=== PATIENT | female | born 1975 | race Caucasian/White ===

== ENCOUNTER → 2022-04-24 08:09 | Outpatient (CLI) | payer OTHER, SELFPAY ==
[2022-04-24 10:47] LABS: Add Manual Diff / Slide Review NO; Basophils Absolute Auto 0 /uL (0-100); Basophils Percent Auto 0.7 % (0-2); Eosinophils Absolute Auto 100 /uL (0-450); Eosinophils Percent Auto 2.4 % (2-4); Hematocrit 40.6 % (36-46); Hemoglobin 13.9 g/dL (12.0-16.0); Lymphocytes Absolute Auto 1800 /uL (1100-4500); Lymphocytes Percent Auto 34.2 % (25-40); Mean Corpuscular HGB Conc 34.1 % (30-36); Mean Corpuscular Hemoglobin 30.8 PG (26-34); Mean Corpuscular Volume 90.1 fL (80-100); Monocytes Absolute Auto 300 /uL (0-900); Neutrophils Absolute Auto 2900 /uL (1500-7000); Neutrophils Percent Auto 56.7 % (50-75); Platelet Count 218 X10^3/uL (150-400); Red Blood Cell Count 4.51 X10^6/uL (4.0-5.2); Red Cell Distribution Width 12.4 % (11.6-14.8); White Blood Cell Count 5.1 X10^3/uL (4.5-11.0)
[2022-04-24 11:06] LABS: Erythrocyte Sedimentation Rate 9 MM/HR (0-20)
[2022-04-24 11:13] LABS: Hemoglobin A1C% w Est Avg Glu 5.3 % (4.0-6.0)
[2022-04-24 11:18] LABS: Alanine Aminotransferase 10 IU/L (<35); Albumin Globulin Ratio 1.5 (1.0-2.8); Alkaline Phosphatase 53 U/L (38-126); Aspartate Aminotransferase 18 IU/L (14-36); BUN Creatinine Ratio 15.3 (6-22); Bilirubin Total 0.5 mg/dL (0.2-1.3); Blood Urea Nitrogen 11 mg/dL (7-17); Carbon Dioxide 28 mmol/L (22-32); Chloride 104 mmol/L (98-107); Cholesterol 179 mg/dL (140-199); Estimated Glomerular Filt Rate > 60 mL/min (>60); Globulin 2.7 g/dL (1.7-4.1); Glucose 86 mg/dL (70-100); HDL Cholesterol 38 mg/dL (40-60); HEMOLYSIS < 15 (0-50); LDL Cholesterol Calculated 117 mg/dL (<100); Potassium 4.2 mmol/L (3.4-5.1); Sodium 138 mmol/L (137-145); Total Protein 6.7 g/dL (6.3-8.2); Triglycerides 119 mg/dL (35-150)
[2022-04-24 11:23] LABS: High Sensitivity CRP - Cardiac 0.8 mg/L (1.0-3.0)
[2022-04-24 11:31] LABS: Progesterone, Total 2.97 ng/mL
[2022-04-24 11:47] LABS: Estradiol, Total 27.9 pg/mL
[2022-04-24 11:51] LABS: TSH w/ Reflex to FT4 1.48 uIU/mL (0.47-4.68)
[2022-04-25 07:37] LABS: Insulin Level Total 17.3 uIU/mL (2.6-24.9)
[2022-04-26 13:36] LABS: ANA Screen, IFA Negative (.)
[2022-05-01 22:06] LABS: Testosterone % Fr + Wkly bound 9.2 % (3.0-18.0); Testosterone Fr+Wkly bound 1.6 ng/dL (0.0-9.5); Testosterone, Total 17.9 ng/dL (.)
[2022-05-09 12:03] LABS: Dehydroepiandrosterone (DHEA) 503
== END ==
PROVIDERS: PCP Family Medicine; Referring Provider Family Medicine; Visit Provider Family Medicine
DX: E28.2 Polycystic ovarian syndrome (principal); E88.81 Metabolic syndrome and other insulin resistance; E66.9 Obesity, unspecified; R53.83 Other fatigue; Z86.32 Personal history of gestational diabetes; R79.9 Abnormal finding of blood chemistry, unspecified; R20.0 Anesthesia of skin; R20.2 Paresthesia of skin; Z13.220 Encounter for screening for lipoid disorders; Z83.2 Family history of diseases of the blood and blood-forming organs and certain disorders involving the immune mechanism
CPT/HCPCS: 36415; 80053; 80061; 82627; 82670; 83036; 83525; 84144; 84403; 84443; 85025; 85651; 86038; 86140

== ENCOUNTER → 2022-11-06 13:18 | Outpatient (CLI) | payer OTHER, SELFPAY ==
--- NOTE | 2022-11-06 | DI.MG.S_ITS ---
BILATERAL DIGITAL SCREENING MAMMOGRAM 3D/2D WITH CAD: 11/06/2022 CLINICAL: Routine screening. Baseline exam. No prior exams were available for comparison. Both breasts are heterogeneously dense, which may obscure small masses (category c / 51-75% glandular tissue). Current study was also evaluated with a Computer Aided Detection (CAD) system. There is a 0.9 cm x 1.5 cm focal asymmetry in the left breast at 5 o'clock middle depth. No other significant masses, calcifications, or other findings are seen in either breast. IMPRESSION: INCOMPLETE: NEEDS ADDITIONAL IMAGING EVALUATION The 0.9 cm x 1.5 cm focal asymmetry in the left breast is indeterminate. Additional views with possible ultrasound are recommended. Based on the Tyrer Cuzick model (a risk assessment model) the patient's lifetime risk is 12.7% and her 10 year risk is 2.6%. According to the ACR, ACS, and NCCN guidelines, an annual breast MRI exam along with mammogram is recommended if the patient's lifetime risk is 20% or greater. This exam was interpreted at Station ID: [id number]. NOTE: For mammograms, a report in lay terms will be sent to the patient. Approximately 15% of breast malignancies will not be visualized mammographically. In the management of a palpable breast mass, a negative mammogram must not discourage biopsy of a clinically suspicious lesion. Electronically Signed By: Akbar landaverde/faiza:11/06/2022 14:25:37 letter sent: Additional Imaging Needed ACR BI-RADS Category 0: Incomplete 3340F
== END ==
PROVIDERS: PCP Family Medicine; Referring Provider Family Medicine; Visit Provider Family Medicine
DX: Z12.31 Encounter for screening mammogram for malignant neoplasm of breast (principal)
CPT/HCPCS: 77063; 77067

== ENCOUNTER → 2022-12-18 09:25 | Outpatient (CLI) | payer OTHER, SELFPAY ==
--- NOTE | 2022-12-18 | DI.US.S_ITS ---
LIMITED ULTRASOUND OF LEFT BREAST AND AXILLA: 12/18/2022 CLINICAL: Patient returns today to evaluate an asymmetry in the left breast. Patient returns today to evaluate a focal asymmetry in the left breast. Comparison is made to exams dated: 12/18/2022 mammogram and 11/06/2022 mammogram - [facility]. Color flow and real-time ultrasound of the left breast 5-6 o'clock, and axilla regions were performed. Dukes scale images of the real-time examination were reviewed. There is a 0.9 cm x 0.7 cm x 0.5 cm oval mass in the left breast at 5 o'clock middle depth 7 cm from the nipple. This oval mass is hypoechoic with posterior acoustic shadowing. This correlates with mammography findings. There are related micro calcifications. Color flow imaging demonstrates that there is no vascularity present. No significant abnormalities were seen sonographically in the left axilla. IMPRESSION: SUSPICIOUS OF MALIGNANCY The 0.9 cm x 0.7 cm x 0.5 cm oval mass in the left breast is at a low suspicion for malignancy. Differential diagnosis of a fibroadenoma. An ultrasound guided biopsy is recommended. No enlarged left axillary lymph nodes. Exam findings were discussed with the patient by Dr. Romero Spicer. This exam was interpreted at Station ID: [id number]. Electronically Signed By: Henrik Billings M.D. [facility]/:12/18/2022 10:24:12 letter sent: Biopsy Required Ultrasound BI-RADS: 4a Low suspicion for malignancy
--- NOTE | 2022-12-18 | DI.MG.S_ITS ---
UNILATERAL LEFT DIGITAL DIAGNOSTIC MAMMOGRAM 3D/2D WITH ADDITIONAL VIEWS: 12/18/2022 CLINICAL: Additional evaluation requested from prior study. Comparison is made to exam dated: 11/06/2022 mammogram - [facility]. The left breast is heterogeneously dense, which may obscure small masses (category c / 51-75% glandular tissue). There is a 1.5 cm oval focal asymmetry with a circumscribed margin in the left breast at 5 o'clock middle depth. No other significant masses or calcifications are seen in the breast. IMPRESSION: INCOMPLETE: NEEDS ADDITIONAL IMAGING EVALUATION The 1.5 cm oval focal asymmetry in the left breast is indeterminate. A targeted ultrasound is recommended and will immediately follow. Based on the Tyrer Cuzick model (a risk assessment model) the patient's lifetime risk is 12.7% and her 10 year risk is 2.6%. According to the ACR, ACS, and NCCN guidelines, an annual breast MRI exam along with mammogram is recommended if the patient's lifetime risk is 20% or greater. This exam was interpreted at Station ID: [id number]. NOTE: For mammograms, a report in lay terms will be sent to the patient. Approximately 15% of breast malignancies will not be visualized mammographically. In the management of a palpable breast mass, a negative mammogram must not discourage biopsy of a clinically suspicious lesion. Electronically Signed By: Henrik Billings M.D. slc/:12/18/2022 09:52:00 ACR BI-RADS Category 0: Incomplete 3340F
== END ==
PROVIDERS: PCP Family Medicine; Referring Provider Family Medicine; Visit Provider Family Medicine
DX: R92.8 Other abnormal and inconclusive findings on diagnostic imaging of breast (principal); N63.23 Unspecified lump in the left breast, lower outer quadrant
CPT/HCPCS: 76642; 77065; G0279

== ENCOUNTER → 2023-01-06 07:45 | Outpatient (CLI) | payer OTHER, SELFPAY ==
--- NOTE | 2023-01-06 | DI.MG.S_ITS ---
UNILATERAL LEFT DIGITAL DIAGNOSTIC MAMMOGRAM 3D/2D POST-EXCISIONAL BIOPSY: 01/06/2023 CLINICAL: Post clip. Comparison is made to exams dated: 12/18/2022 mammogram, 11/06/2022 mammogram, 12/18/2022 ultrasound, and 01/06/2023 ultrasound biopsy - [facility]. The left breast is heterogeneously dense, which may obscure small masses (category c / 51-75% glandular tissue). There is a vision marker clip in the appropriate position in the left breast at 6 o'clock anterior depth at the biopsy site. However, the biopsied mass and the original mammographic finding are discordant. IMPRESSION: POST PROCEDURE MAMMOGRAM FOR MARKER PLACEMENT There was a successful vision marker clip placement in the left breast anterior depth at the biopsy site. However, the biopsied mass and the original mammographic finding are discordant. Please see separately dictated US biopsy report. This discordance was discussed with the patient after the biopsy. This exam was interpreted at Station ID: [id number]. Electronically Signed By: Henrik Billings M.D. slc/:01/06/2023 09:27:09 ACR BI-RADS Category Post-procedure mammogram for marker placement
--- NOTE | 2023-01-06 | PATH_ITS ---
[facility] Accession Number: [id number] No. of containers..01 Tissue . 01 Material submitted: . breast - LEFT BREAST MASS 5:30 7 CMFN . 01 Diagnosis: A. Left Breast Mass, 5:30, 7 cm from the Nipple, Biopsy: Fragments of fibroadenoma. No evidence of atypia, carcinoma in situ, or malignancy. MRV 01/08/2023 1820 Local . 01 Electronically signed: . Charity Hickman MD, Pathologist NPI- [id number] . 01 Gross description: . Received one formalin-filled container, labeled with the patient's name and designated left breast mass 5:30, 7 cm FN. The specimen is received with a plastic filter in container, sample loose in container and consists of multiple fragments of yellow-nj soft tissue which range in size from 0.1 x 0.1 x 0.1 cm to 1.0 x 0.2 x 0.2 cm. All fragments are totally submitted in one cassette. Possible collection date and time per requisition: 01/06/2023 at 0907. Total fixation time: Approximately 18 hours. ([id number]) /FRNicol 01/07/2023 0218 Local . 01 Pathologist provided ICD-10: D24.2 . 01 CPT . 932066 Specimen Comment: A courtesy copy of this report has been sent to [facility] Pathology Performed at: 01 [facility] [address] [place] [address] [id number] MD Robert Prasad MD Phone: [phone]
--- NOTE | 2023-01-06 | DI.US.S_ITS ---
ULTRASOUND GUIDED BIOPSY LEFT BREAST USING VACUUM DEVICE WITH MARKING DEVICE INSERTED AND POST DIGITAL MAMMOGRAPHIC AND ULTRASOUND IMAGIN01/06/2023 CLINICAL: Left breast mass. PATIENT CONSENT: Risks (minor bleeding, infection, vasovagal reaction and repeat procedure), benefits and alternatives were explained to the patient and written informed consent was obtained. Correlation is made to exams dated: 01/06/2023 mammogram, 12/18/2022 ultrasound, 12/18/2022 mammogram, and 11/06/2022 mammogram - [facility]. An ultrasound guided biopsy using real-time ultrasound was performed for the 0.7 cm circumscribed oval mass located in the left breast at 5:30 o'clock middle depth 7 cm from the nipple. This was described on the previous ultrasound report. The skin was prepped in the usual manner. Local anesthetic was administered to the access site. A skin anais was made in the breast. The abnormality was approached from the lateral aspect. A 13 gauge biopsy needle was placed adjacent to the abnormality under ultrasound guidance. Once the needle was documented to be in the correct location, six specimens were obtained using the Mammotome biopsy system. The patient received additional local anesthetic during the procedure. A vision clip was inserted into the biopsy cavity. A skin adhesive and a sterile dressing were applied to the access site. Post procedure digital mammographic and ultrasound imaging demonstrates the location device at the targeted area. The specimens were sent to the laboratory for pathological analysis. IMPRESSION: ULTRASOUND GUIDED BIOPSY BENIGN Ultrasound guided biopsy of the 0.7 cm mass in the left breast at 5:30 o'clock middle depth 7 cm from the nipple was successful. Pathology demonstrate a fibroadenoma. Pathology results are concordant with imaging findings. The post biopsy mammogram clip location and the original mammographic mass are not the same mass. However, the original mammographic mass is small and circumscribed and is most consistent with an additional fibroadenoma. There is a small circumscribed mass in the right breast 12:00 anterior depth seen on the tomosynthesis images which also is most consistent with a fibroadenoma. Multiple bilateral circumscribed masses, one of which is a biopsy proven benign fibroadenoma. A follow-up mammogram in 6 months is recommended to demonstrate stability as a precaution. This exam was interpreted at Station ID: [id number]. Henrik Billings M.D. slc/:01/09/2023 15:07:25
== END ==
PROVIDERS: PCP Nurse Practitioner Family; Referring Provider Nurse Practitioner Family; Visit Provider Nurse Practitioner Family
DX: D24.2 Benign neoplasm of left breast (principal)
CPT/HCPCS: 19083; 77065

== ENCOUNTER → 2023-05-21 12:04 | Outpatient (CLI) | payer OTHER, SELFPAY ==
[2023-05-21 13:22] LABS: Hemoglobin A1C% w Est Avg Glu 4.9 % (4.0-6.0)
[2023-05-21 13:23] LABS: Alanine Aminotransferase 19 IU/L (<35); Albumin 4.4 g/dL (3.5-5.0); Albumin Globulin Ratio 1.5 (1.0-2.8); Alkaline Phosphatase 52 U/L (38-126); Aspartate Aminotransferase 26 IU/L (14-36); BUN Creatinine Ratio 14.7 (6-22); Bilirubin Total 0.6 mg/dL (0.2-1.3); Blood Urea Nitrogen 10 mg/dL (7-17); Calcium 9.5 mg/dL (8.4-10.2); Carbon Dioxide 20 mmol/L (22-32); Chloride 105 mmol/L (98-107); Estimated Glomerular Filt Rate > 60 mL/min (>60); Glucose 91 mg/dL (70-100); Sodium 135 mmol/L (137-145); Total Protein 7.4 g/dL (6.3-8.2)
[2023-05-21 13:31] LABS: HEMOLYSIS 69 (0-50)
[2023-05-21 13:32] LABS: Potassium 4.6 mmol/L (3.4-5.1)
[2023-05-21 13:54] LABS: TSH w/ Reflex to FT4 1.11 uIU/mL (0.47-4.68)
[2023-05-23 05:28] LABS: Cholesterol,Total 220 mg/dL (100-199); HDL Cholesterol 44 mg/dL (>39); LDL Cholesterol Cal 157 mg/dL (0-99); Triglycerides 107 mg/dL (0-149); VLDL Cholesterol Cal 19 mg/dL (5-40)
== END ==
PROVIDERS: PCP Nurse Practitioner Family; Referring Provider Nurse Practitioner Family; Visit Provider Nurse Practitioner Family
DX: R73.9 Hyperglycemia, unspecified (principal); E66.9 Obesity, unspecified; Z13.220 Encounter for screening for lipoid disorders
CPT/HCPCS: 36415; 80053; 80061; 83036; 84443

== ENCOUNTER → 2023-07-29 12:04 | Outpatient (CLI) | payer OTHER, SELFPAY ==
--- NOTE | 2023-07-29 | DI.MG.S_ITS ---
UNILATERAL LEFT DIGITAL DIAGNOSTIC MAMMOGRAM 3D/2D SHORT-TERM FOLLOW-UP: 07/29/2023 CLINICAL: Short term follow up for the left breast. Post clip. Comparison is made to exams dated: 01/06/2023 mammogram, 12/18/2022 mammogram, and 11/06/2022 mammogram - [facility]. The left breast is heterogeneously dense, which may obscure small masses (category c / 51-75% glandular tissue). The biopsy site marker is present at the 6:30 position middle depth right breast. No increasing associated asymmetry or other suspicious features. Incidentally, there is a 1 cm oval asymmetry with a circumscribed margin in the left breast at 4 o'clock middle depth. This is increased in size. No other significant masses or calcifications are seen in the breast. IMPRESSION: INCOMPLETE: NEEDS ADDITIONAL IMAGING EVALUATION Stable tissue surrounding a 6:30 biopsy marker which indicates biopsy-proven fibroadenoma. Incidental 1 cm increasing asymmetry in the left breast most likely is a fibroadenoma but remains indeterminate. An ultrasound is recommended. This will be performed as soon as possible. If not today, then at the next available appointment. Findings and recommendations were conveyed to the patient at time of exam. Based on the Tyrer Cuzick model (a risk assessment model) the patient's lifetime risk is 12.7% and her 10 year risk is 2.6%. According to the ACR, ACS, and NCCN guidelines, an annual breast MRI exam along with mammogram is recommended if the patient's lifetime risk is 20% or greater. This exam was interpreted at Station ID: [id number]. NOTE: For mammograms, a report in lay terms will be sent to the patient. Approximately 15% of breast malignancies will not be visualized mammographically. In the management of a palpable breast mass, a negative mammogram must not discourage biopsy of a clinically suspicious lesion. Electronically Signed By: Radha lynne/:07/29/2023 15:15:53 Entry: - 07/29/2023 15:15:53 ACR BI-RADS Category 0: Incomplete 3340F
== END ==
PROVIDERS: PCP Nurse Practitioner Family; Referring Provider Nurse Practitioner Family; Visit Provider Nurse Practitioner Family
DX: R92.8 Other abnormal and inconclusive findings on diagnostic imaging of breast (principal); D24.2 Benign neoplasm of left breast; N64.89 Other specified disorders of breast
CPT/HCPCS: 77065; G0279

== ENCOUNTER → 2023-07-30 14:45 | Outpatient (CLI) | payer OTHER, SELFPAY ==
--- NOTE | 2023-07-30 | DI.US.S_ITS ---
LIMITED ULTRASOUND OF LEFT BREAST: 07/30/2023 CLINICAL: Patient returns today to evaluate a focal asymmetry in the left breast. Comparison is made to exams dated: 07/29/2023 mammogram, 01/06/2023 ultrasound biopsy, 01/06/2023 mammogram, 12/18/2022 ultrasound, 12/18/2022 mammogram, and 11/06/2022 mammogram - [facility]. Color flow and real-time ultrasound of the left breast 4-6 o'clock region were performed. There is a 0.6 cm x 0.6 cm x 0.7 cm oval hypoechoic mass with a circumscribed margin in the left breast at 4 o'clock posterior depth 4 cm from the nipple. Color flow imaging demonstrates no vascularity present. This finding corresponds to lower outer quadrant mass seen on mammogram, which is mammographically stable since 11/06/2022. Previously biopsied benign and concordant mass at 5:30 o'clock, 7 cm from the nipple has decreased in size status post biopsy and now measures up to 0.8 cm, previously 0.9 cm. Biopsy clip is not definitely seen. IMPRESSION: PROBABLY BENIGN Left breast 0.6 cm oval circumscribed mass at 4 o'clock, which is mammographically stable since 11/06/2022. Finding likely represents a fibroadenoma and is probably benign. Recommend follow up left breast mammogram and ultrasound in 3 months (October 2023) when patient will be due for bilateral mammogram to demonstrate 1 year stability. Left breast 5:30 o'clock benign and concordant biopsied mass is stable. No further sonographic follow up is needed. Findings and recommendations were conveyed to the patient during today's evaluation. This exam was interpreted at Station ID: [id number]. Electronically Signed By: Amanda Sandoval M.D., PH.D eb/:07/30/2023 16:47:48 letter sent: Followup Recommended Ultrasound BI-RADS: 3 Probably benign
== END ==
PROVIDERS: PCP Nurse Practitioner Family; Referring Provider Nurse Practitioner Family; Visit Provider Nurse Practitioner Family
DX: R92.8 Other abnormal and inconclusive findings on diagnostic imaging of breast (principal); N63.23 Unspecified lump in the left breast, lower outer quadrant
CPT/HCPCS: 76642

== ENCOUNTER → 2023-11-18 13:33 | Outpatient (CLI) | payer OTHER, SELFPAY ==
--- NOTE | 2023-11-18 | DI.US.S_ITS ---
LIMITED ULTRASOUND OF LEFT BREAST AND AXILLA: 11/18/2023 CLINICAL: Patient returns today to evaluate a focal asymmetry in the left breast. Comparison is made to exams dated: 11/18/2023 mammogram, 07/30/2023 ultrasound, 07/29/2023 mammogram, 01/06/2023 ultrasound biopsy, 12/18/2022 ultrasound, and 11/06/2022 mammogram - [facility]. Color flow and real-time ultrasound of the left breast 3-4 o'clock, and axilla regions were performed. Dukes scale images of the real-time examination were reviewed. There is a 0.9 cm x 0.6 cm x 0.4 cm oval mass with a circumscribed margin in the left breast at 3 o'clock (closer to 3:00 rather than 4:00) middle depth 4 cm from the nipple. This oval mass is hypoechoic with a well-defined boundary. This abnormality is not significantly changed and correlates with mammography findings. Color flow imaging demonstrates that there is no vascularity present. No significant abnormalities were seen sonographically in the left axilla. IMPRESSION: PROBABLY BENIGN The 0.9 cm circumscribed mass in the left breast most likely is a fibroadenoma and is probably benign. A follow-up mammogram and possible ultrasound in 12 months is recommended to demonstrate long-term stability. No enlarged left axillary lymph nodes. Exam findings were conveyed to the patient. Patient is advised to monitor for significant change. This exam was interpreted at Station ID: [id number]. Electronically Signed By: Henrik Billings M.D. slc/:11/18/2023 14:58:57 letter sent: Followup Recommended Ultrasound BI-RADS: 3 Probably benign
--- NOTE | 2023-11-18 | DI.MG.S_ITS ---
BILATERAL DIGITAL DIAGNOSTIC MAMMOGRAM 3D/2D: 11/18/2023 CLINICAL: Short term follow up of the left breast, due for bilateral imaging. Comparison is made to exams dated: 07/29/2023 mammogram, 01/06/2023 mammogram, 12/18/2022 mammogram, 11/06/2022 mammogram, and 07/30/2023 [facility]. Both breasts are heterogeneously dense, which may obscure small masses (category c / 51-75% glandular tissue). There is a stable 1 cm mass with a circumscribed margin in the left breast at 4 o'clock middle depth. This correlates with ultrasound findings. Biopsy clip in the left breast. IMPRESSION: INCOMPLETE: NEEDS ADDITIONAL IMAGING EVALUATION The stable 1 cm mass in the left breast most likely is a fibroadenoma and is indeterminate. A targeted ultrasound is recommended and will immediately follow. Based on the Tyrer Cuzick model (a risk assessment model) the patient's lifetime risk is 12.6% and her 10 year risk is 2.7%. According to the ACR, ACS, and NCCN guidelines, an annual breast MRI exam along with mammogram is recommended if the patient's lifetime risk is 20% or greater. This exam was interpreted at Station ID: [id number]. NOTE: For mammograms, a report in lay terms will be sent to the patient. Approximately 15% of breast malignancies will not be visualized mammographically. In the management of a palpable breast mass, a negative mammogram must not discourage biopsy of a clinically suspicious lesion. Electronically Signed By: Henrik Billings M.D. slc/:11/18/2023 14:20:47 ACR BI-RADS Category 0: Incomplete 3340F
== END ==
PROVIDERS: PCP Nurse Practitioner Family; Referring Provider Nurse Practitioner Family; Visit Provider Nurse Practitioner Family
DX: R92.8 Other abnormal and inconclusive findings on diagnostic imaging of breast (principal); R92.333 Mammographic heterogeneous density, bilateral breasts
CPT/HCPCS: 76642; 77066; G0279

== ENCOUNTER → 2024-12-20 | Outpatient (CLI) | payer OTHER, SELFPAY ==
--- NOTE | 2024-12-20 16:15 | DI.MG.S_ITS ---
MM screening mammo BI: 12/20/2024. BI-RADS: 2 CLINICAL: 49-year old female for bilateral screening mammogram. Tyrer-Cuzick lifetime risk of 15.1%. No personal or first-degree family history of breast cancer. The patient had a prior left breast biopsy. PRIOR EXAMS 11/18/2023, 07/30/2023, 07/29/2023, 01/06/2023, 12/18/2022, 11/06/2022. MAMMOGRAPHY TECHNIQUE: 2D and 3D (tomosynthesis) digital mammographic views obtained, with additional images as needed for full coverage. Current study was also evaluated with a Computer Aided Detection (CAD) system. DENSITY C. The breasts are heterogeneously dense, which may obscure small masses. MAMMOGRAPHY FINDINGS Right: No suspicious mass, asymmetry, microcalcification, or other abnormality seen. Left: Biopsy marker present on the left. There are no suspicious masses, calcifications, or other findings in the breast. IMPRESSION: Right * No evidence of malignancy. Left * No evidence of malignancy with benign findings. RECOMMENDATIONS Bilateral * Annual screening mammography. OVERALL ASSESSMENT CATEGORY BI-RADS-2: Benign. The [employer] recommends annual screening mammography beginning at age 40 for women with average risk of breast cancer. ELECTRONICALLY SIGNED: Henrik Billings M.D. on 12/26/2024 at 01:28:48 PM PT Interpreting Station ID: [id number]
== END ==
LOC: MAMMO 16:15
PROVIDERS: PCP Specialist; Referring Provider Specialist; Visit Provider Specialist
DX: Z12.31 Encounter for screening mammogram for malignant neoplasm of breast (principal); R92.333 Mammographic heterogeneous density, bilateral breasts
CPT/HCPCS: 77063; 77067

== ENCOUNTER → 2025-03-28 13:27 | Outpatient (CLI) | payer OTHER, SELFPAY ==
[2025-03-28 14:00] LABS: Add Manual Diff / Slide Review NO; Hematocrit 41.4 % (36-46); Hemoglobin 14.6 g/dL (12.0-16.0); Lymphocytes Absolute Auto 2100 /uL (1100-4500); Mean Corpuscular HGB Conc 35.3 % (30-36); Mean Corpuscular Hemoglobin 32.4 PG (26-34); Mean Corpuscular Volume 91.8 fL (80-100); Platelet Count 224 X10^3/uL (150-400)
[2025-03-28 14:25] LABS: Alanine Aminotransferase 14 IU/L (<35); Albumin 4.8 g/dL (3.5-5.0); Albumin Globulin Ratio 1.7 (1.0-2.8); Alkaline Phosphatase 64 U/L (38-126); Blood Urea Nitrogen 12 mg/dL (7-17); Calcium 9.4 mg/dL (8.4-10.2); Carbon Dioxide 26 mmol/L (22-32); Chloride 105 mmol/L (98-107); Estimated Glomerular Filt Rate > 60 mL/min (>60); Globulin 2.8 g/dL (1.7-4.1); Glucose 85 mg/dL (70-99); HEMOLYSIS < 15 (0-50); Potassium 4.5 mmol/L (3.4-5.1); Sodium 139 mmol/L (137-145); Total Protein 7.6 g/dL (6.3-8.2)
[2025-03-28 16:02] LABS: Progesterone, Total 0.54 ng/mL
[2025-03-28 16:17] LABS: Estradiol, Total 18.3 pg/mL
[2025-03-30 07:41] LABS: Insulin Level Total 7.7 uIU/mL (2.6-24.9)
== END ==
PROVIDERS: PCP Specialist; Referring Provider Specialist; Visit Provider Specialist
DX: N95.9 Unspecified menopausal and perimenopausal disorder (principal); R53.83 Other fatigue; R68.82 Decreased libido; Z51.81 Encounter for therapeutic drug level monitoring; R73.09 Other abnormal glucose
CPT/HCPCS: 36415; 80053; 82670; 83525; 84144; 84403; 85025